=== PATIENT | male | born 1975 | race Caucasian/White ===

== ENCOUNTER 2018-05-23 22:37 | Inpatient (IN) | payer MEDICAID, OTHER ==
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
[2018-05-23] MEDS ORDERED: OLANZapine 5 MG TAB PO ONE (23:01)
[2018-05-23 23:22] LABS: PLATELET COUNT 253 10^3/uL (150-400)
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
--- NOTE | 2018-05-24 11:05 | ASMTTCLDSP ---
TLC Discharge Disposition Disposition: Answers: Admit Disposition Notes: Notes: Admit 3[facility] Discharge Concerns/Recommendations: Notes: In consultation with [facility] ED physician, Chris Worthington MD, and on-call psychiatrist, Ryan Khoury APN, both concurred that pt does appears to meet 27-65 criteria requiring psychiatric hospitalization as pt appears to be gravely disabled due to a mental illness condition. Pt was given the 3N prohibited belongings list while in the ED. Was patient given the Answers: Yes Inpatient Behavioral Health Prohibited Belongings List while in the ED? For inpatient Ryan Khoury APN admission, the following psychiatrist agreed to accept patient for admission to Behavioral Health ([facility]): Type of Hold: Answers: M1/72-hour Hold Hold initiated by: Answers: ED Physician Date Signed: 05/24/2018 11:04 AM Electronically Signed By:Mc Casillas
[2018-05-24] MEDS ORDERED: LORazepam 0.5 MG TAB PO PRN (13:18)
[2018-05-24] MEDS ORDERED: OLANZapine DISINTEGR 10 MG TAB PO PRN (13:18)
[2018-05-24] MEDS ORDERED: MAGNESIUM HYDROXIDE 30 ML UDCUP PO PRN (13:18)
[2018-05-24] MEDS ORDERED: MAG HYDROX/AL HYDROX/SIMETH 30 ML UDCUP PO PRN (13:18)
[2018-05-24] MEDS ORDERED: NICOTINE POLACRILEX 2 MG GUM B PRN (13:18)
[2018-05-24] MEDS ORDERED: ACETAMINOPHEN 325 MG TAB PO PRN (13:18)
[2018-05-24] MEDS ORDERED: DIVALPROEX ER 500 MG TAB PO ONE (14:38)
--- NOTE | 2018-05-24 14:54 | PDMN ---
Medical Necessity Medical necessity: [facility] [id number] Bipolar Disorders, Adult, IP care: 42 y/o w/ Bipolar I d/o w/ psychotic features and cannabis use d/o, severe, M1 hold
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
[2018-05-24] MEDS: OLANZapine DISINTEGR 10 MG TAB PO SCH (20:54)
--- NOTE | 2018-05-25 07:55 | SOAPPROG ---
SOAP Progress Note Assessment/Plan: Assessment: Plan: Subjective: Following up with patient for evaluation of keyona and safety. Patient reports, "Slept well last night, the medications were good. Alexandra eased up on me, felt a little like CBD, but overall was good. Think it is what I need." Patient expresses the following psychiatric symptoms moderate anxiety. Patient reports taking medications as prescribed, and describes response to medications as good. Patient does not report undesirable side effects from the medications, and agrees to continue current medications. Patient reports appetite as good, and reports eating all meals. Patient describes 10 hours of sleep. Objective: Vital Signs Temp Pulse Resp BP Pulse Ox 36.8 C 66 15 120/64 98 05/25/18 06:00 05/25/18 06:00 05/25/18 06:00 05/25/18 06:00 05/25/18 06:00 NURSING REPORT: Consulted with nursing for update on patients progress in treatment. Nurses report patient is engaged in treatment, is attending groups, slept 8 hours, expresses the following psychiatric symptoms: moderate anxiety; exhibits the following psychiatric symptoms: moderate anxiety, disorganized, nonsensical, paranoid; is eating all meals, is attending to ADLs, is taking medications as prescribed with no report of side effects, with no s/s of EPS/ akathisia, and denies SI/HI, denies A/V hallucinations, reports delusions. MSE: The patient presents casually dressed and with good hygiene, and looks stated age. Patient is sitting, posture is upright, and relaxed. Patient appears awake, alert, and responds appropriately and reasonably during interview. Patient is engaged, relates well to interviewer, and emotional facial expression is appropriate to situation and changes appropriately with topic. Patient is cooperative, makes comfortable eye contact, and movements are voluntary, deliberate, with no inappropriate movements. Patient uses walker to ambulate. Patient appears attentive during interview. Patient makes laryngeal sounds effortlessly and shares conversation appropriately; pace of conversation is appropriate, and stream of talking is fluent; articulation is clear and understandable; word choice is effortless and appropriate for education level; completes sentences, rate and volume are normal. Patient reports mood as euthymic. Patients affect is expansive, and incongruent with mood. Patients thought process is non-linear and illogical at times, with loose associations, tangential thought. No other signs of formal thought disorder. Patient denies suicidal and homicidal ideation, and denies hallucinations. Patient reports paranoid delusions. Patient appears to be a poor historian with poor judgement and poor insight into current condition. Patient has no apparent dysfunction in recent or remote memory noted, and no evidence of gross cognitive dysfunction noted at any point during the interview. SUBSTANCE ABUSE BRIEF INTERVENTION: Brief intervention regarding the risks of cannabis abuse is provided to patient with goal to reduce the risk of harm that could result from the continued use of these substances, with the general aim to investigate the problem, raise awareness of problem, develop a solution with the patient, recommend a specific change or activity, and motivate the patient toward change. Assess substance abuse behavior and give supportive advice about harm reduction, recommend a reduction in hazardous/at-risk consumption patterns, and facilitate referrals for additional specialized treatment with managed care specialist. Intermediate goal is for the patient to quit use of cannabis and attend OP substance abuse treatment. Intervention focus on intermediate goals to allow for more immediate success in the treatment process to keep the patient motivated. Review following with patient: Cannabis use risks: Short- term use: impaired short-term memory, impaired motor coordination, altered judgement, in high doses paranoia and psychosis. Long-term use addiction, diminished life satisfaction and achievement, symptoms of chronic bronchitis, and increased risk of chronic psychosis disorders if predisposition to such disorders. In withdrawal anger, aggression irritability, anxiety and nervousness, decreased appetite or weight loss, restlessness, and sleep difficulties with strange dreams. Patient responds well to brief intervention, and states he plans to cut-back on use of THC. He does not appear ready to abstain from THC at this time. - Time Spent With Patient Time Spent With Patient: 15 minutes, met with patient individually. - Pending Discharge Pending Discharge Within 24 Hours: No Pending Discharge Within 48 Hours: No ICD10 Worksheet Patient Problems: Problems Problem Status Onset Acute psychosis Acute Bipolar disorder with severe keyona Acute Severe bipolar disorder with psychotic features, mood-incongruent Acute
--- NOTE | 2018-05-25 09:29 | ASMTBHMTP ---
Master Treatment Plan Master Treatment Plan Answers: Depressed Mood with for: Suicidal Ideation Date: 05/24/2018 Diagnosis on Admission: Bi-Polar Disorder, with Psychotic Features 296.44 (F31.2) Expected length of stay: 3-5 days Reason for admission: Notes: Pt is a 42 yo, , physically disabled, not employed male with no previous report of psychiatric treatment, presented initially to [facility] on a voluntary basis and was transported by his Roberto Carlos [phone], with above concerns. Pt was placed on M1 hold by ED provider which noted: Patient here with paranoia, seeing things, hearing things, people watching him. Pt reported that at one point in the past he was suspected of possibly having bipolar illness, but was never formally diagnosed/treated. Pt denying any past/recent/current suicidal/homicidal ideation. He appears to have some limited insight as to his condition. He appeared very pleasant, cooperative, yet quite tangential and disorganized. Patient's stated presenting problems: Notes: I wanted to get better. Patient's goals for treatment: Notes: I wanted to get better. Patient's strengths: Notes: compassion, support Identify supports outside of hospital: Notes: not really Discharge criteria: Notes: suicidal Ideation will resolve and patient will have a plan to safely manage recurrent suicidal ideation Initial disposition plan/considerations: Notes: return home and start services* Master Treatment Plan Required Signatures Psychiatrist signature: Answers: Psychiatrist: RN on-shift signature: Answers: RN: Patient signature: Answers: Patient: Date Signed: 05/25/2018 09:28 AM Electronically Signed By:Ángel Linares
[2018-05-25] MEDS: OLANZapine DISINTEGR 10 MG TAB PO SCH (20:20)
[2018-05-25] MEDS: DIVALPROEX ER 500 MG TAB PO SCH (20:20)
--- NOTE | 2018-05-26 07:38 | SOAPPROG ---
SOAP Progress Note Assessment/Plan: Assessment: Bipolar I Disorder, severe, most recent keyona, with mood-congruent psychotic features, complicated by substance use. Cannabis use disorder, severe. Improvement noted (see subjective/objective note). Patient is not safe to discharge at this time as patient continues to exhibit signs of keyona and psychosis, and express keyona and psychosis symptoms. Patient requires continued inpatient care because of current keyona and psychosis, and requires inpatient level of care to stabilize in order to no longer be gravely disabled due to mental illness. Patient could benefit from continued inpatient hospitalization for crisis stabilization, safety, and medication evaluation. VPA level tomorrow morning. Based on patient's current presentation, patient will likely discharge tomorrow (Wednesday). Plan: (1) Psychotropic medications: After reviewing options, risks, and benefits patient agrees to continue current medications. No medication changes at this time as more time is needed to determine ongoing tolerability and efficacy. Plan is to continue to observe patient for response and side effects from medications, and ongoing monitoring and evaluation. (2) Review with patient informed consent and recommendations for psychotropic medication treatment listed below (3) Labs: VPA level Wednesday (4) Therapy: continue milieu and group therapy (5) Further investigation including gathering information from patients relatives and review of past case records to inform treatment plan. (6) Safety/Wellness plan and follow-up outpatient appointments to be established prior to discharge. Next steps are for patient to meet with resident caregiver to plan a safe discharge plan and establish outpatient services for ongoing treatment. (7) Confer with inpatient treatment team regarding treatment plan. (8) Legal status: M1; to sign-in voluntary when M1 expires (9) Consider discharge on Wednesday if patient is in stable condition, safe, and has a safe discharge plan. (10) Substance abuse interventions: cannabis abuse PSYCHOTROPIC MEDICATION TREATMENT INFORMED CONSENT and RECOMMENDATIONS: Review nature of condition, diagnosis, and prognosis. Review nature and purpose of psychotropic medication treatment. Review type of psychotropic medications being ordered. Review risk and benefits of psychotropic medication treatment. Review probable length of time patient will need to take medications. Review risk and benefits of not undergoing psychotropic medication treatment. Review alternative treatments to psychotropic medications. Review psychotropic medications contraindications, drug-drug interactions, side effects, and importance of reporting any side effects to a psychiatric provider or nurse during inpatient hospitalization, and upon discharge to patients psychiatric outpatient provider, primary care provider, or other health care nurse rn. Review importance of asking a nurse, psychiatric provider, or primary care provider any questions or problems concerning the psychotropic medications. Verify patient understands the information that has been provided, and understands, accepts, and agrees to psychotropic medications. Review patients safety plan and importance of patient to report to staff while hospitalized if patient is ever a danger to self/others, or unable to care for self, and upon discharge, the importance for patient to contact [facility] or [facility], or go to the nearest emergency room, if patient is ever a danger to self/others, or unable to care for self. Recommend that upon discharge patient establish medication management treatment with a psychiatric provider, establishes routine therapy appointments, and follow-up with primary care provider. Verify patient understands and agrees to these recommendations. 05/26/18 07:37 Subjective: Following up with patient for evaluation of keyona and safety. Patient reports, "Feeling much better, surprised at how well the medications are working. Slept well last night and feel rested." Patient expresses the following psychiatric symptoms moderate anxiety. Patient reports taking medications as prescribed, and describes response to medications as good. Patient does not report undesirable side effects from the medications, and agrees to continue current medications. Patient reports appetite as good, and reports eating all meals. Patient describes 8 hours of sleep. Objective: Vital Signs Temp Pulse Resp BP Pulse Ox 36.4 C 90 16 139/78 H 97 05/26/18 06:00 05/26/18 06:00 05/26/18 06:00 05/26/18 06:00 05/26/18 06:00 Laboratory Results 05/25/18 06:05 NURSING REPORT: Consulted with nursing for update on patients progress in treatment. Nurses report patient is engaged in treatment, is attending groups, slept 8 hours, expresses the following psychiatric symptoms: moderate anxiety; exhibits the following psychiatric symptoms: moderate anxiety, some paranoid thinking; is eating all meals, is attending to ADLs, is taking medications as prescribed with no report of side effects, with no s/s of EPS/akathisia, and denies SI/HI, denies A/V hallucinations, reports paranoid delusions. MSE: The patient presents casually dressed and with good hygiene, and looks stated age. Patient is sitting, posture is upright, and relaxed. Patient appears awake, alert, and responds appropriately and reasonably during interview. Patient is engaged, relates well to interviewer, and emotional facial expression is appropriate to situation and changes appropriately with topic. Patient is cooperative, makes comfortable eye contact, and movements are voluntary, deliberate, with no inappropriate movements. Patient uses walker to ambulate. Patient appears attentive during interview. Patient makes laryngeal sounds effortlessly and shares conversation appropriately; pace of conversation is appropriate, and stream of talking is fluent; articulation is clear and understandable; word choice is effortless and appropriate for education level; completes sentences, rate and volume are normal. Patient reports mood as euthymic. Patients affect is expansive, and incongruent with mood. Patients thought process is linear and illogical at times, with some loose associations, tangential thought. No other signs of formal thought disorder. Patient denies suicidal and homicidal ideation, and denies hallucinations. Patient reports paranoid delusions. Patient appears to be a poor historian with poor judgement and poor insight into current condition. Patient has no apparent dysfunction in recent or remote memory noted, and no evidence of gross cognitive dysfunction noted at any point during the interview. SUBSTANCE ABUSE BRIEF INTERVENTION: Brief intervention regarding the risks of cannabis abuse is provided to patient with goal to reduce the risk of harm that could result from the continued use of these substances, with the general aim to investigate the problem, raise awareness of problem, develop a solution with the patient, recommend a specific change or activity, and motivate the patient toward change. Assess substance abuse behavior and give supportive advice about harm reduction, recommend a reduction in hazardous/at-risk consumption patterns, and facilitate referrals for additional specialized treatment with resident caregiver. Intermediate goal is for the patient to quit use of cannabis and attend OP substance abuse treatment. Intervention focus on intermediate goals to allow for more immediate success in the treatment process to keep the patient motivated. Review following with patient: Cannabis use risks: Short- term use: impaired short-term memory, impaired motor coordination, altered judgement, in high doses paranoia and psychosis. Long-term use addiction, diminished life satisfaction and achievement, symptoms of chronic bronchitis, and increased risk of chronic psychosis disorders if predisposition to such disorders. In withdrawal anger, aggression irritability, anxiety and nervousness, decreased appetite or weight loss, restlessness, and sleep difficulties with strange dreams. - Time Spent With Patient Time Spent With Patient: 15 minutes, met with patient individually. - Pending Discharge Pending Discharge Within 24 Hours: Yes Pending Discharge Within 48 Hours: No Pending Discharge Date: 05/27/18 Pending Discharge Time: 11:00 ICD10 Worksheet Patient Problems: Problems Problem Status Onset Acute psychosis Acute Bipolar disorder with severe keyona Acute Severe bipolar disorder with psychotic features, mood-incongruent Acute
--- NOTE | 2018-05-26 08:18 | ASMTCMCOM ---
CM Note CM Note Notes: Client appears to be doing well on the unit. Still Paranoid, believes "stickers on other peoples car are telling me thinks and others are watching me do everything." Clt notes that "I think the medications are working well and would like to continue on them." Client denies any feelings of AVH, Anxiety, Depression or S/I-H/I. Pt notes receiving 8+ hours of sleep last night. CC sent over referral to P for follow up care, waiting to hear back. Additionally, would like a family meeting on Wednesday around 2:15, or 2:30pm prior to any possible discharge, etc. Medicaid application sent to be screened as secondary coverage to Medicare, etc. Date Signed: 05/26/2018 08:17 AM Electronically Signed By:Ángel Linares
[2018-05-26] MEDS: OLANZapine DISINTEGR 10 MG TAB PO SCH (18:15)
[2018-05-26] MEDS: DIVALPROEX ER 500 MG TAB PO SCH (18:15)
[2018-05-27 06:49] VITALS: BP 125/67
--- NOTE | 2018-05-27 07:11 | BDS ---
REASON FOR ADMISSION: From the ED note dated 05/23/2018, the patient presented to the emergency department with chief complain of "people are watching me and following me." The patient presented to the emergency room by private vehicle with his . The patient states that he is paranoid that people are following him and that people are watching him. The patient denied methamphetamine use. The patient again stated he feels very concerned about people always watching him. The patient was admitted involuntarily on an M1 hold due to being gravely disabled due to a mental illness. The patient was admitted for safety crisis stabilization and medication management. ADMITTING DIAGNOSES: Bipolar I disorder, severe, with mood congruent psychotic features cannabis use disorder, severe, in a controlled environment. ADMISSION PHYSICAL EXAM: The patient was seen on 05/24/2018, by Dr. Turner for an Internal Medicine consultation for medical clearance for inpatient Behavioral Health stay. Dr. Turner reported he saw no medical contraindications to the patient's continued stay on the inpatient behavioral health unit or to any psychiatric medications or procedures. For further details, please refer to Dr. Turner's internal medicine consultation note dated 05/24/2018. ADMISSION LABS: From 05/23/2018, CBC was within normal limits. There was a slight elevation of absolute monocytes of no clinical significance. Serum chemistry revealed hyponatremia with sodium slightly low at 134. Otherwise, renal function and electrolytes were normal. Toxicology screen in the serum was negative for ethyl alcohol and in the urine was non-negative for marijuana, but otherwise negative for substances of abuse. Liver function tests from 05/24, within normal limits. Hemoglobin A1c from 05/24/2018, was 5.6. Fasting lipid panel from 05/25/2018, within normal limits except LDL cholesterol calculated was elevated at 120 and non-HDL cholesterol was elevated at 136. TSH was normal at 1.310. MAJOR PROCEDURES OR TESTS: None. HOSPITAL COURSE: The most prominent symptoms and behaviors while the patient was here were keyona symptoms including tangential thought process, pressured speech, hyper talkative and decreased need for sleep, psychosis symptoms including disorganized thought process and paranoid thought content. Target symptoms during hospitalization included targeting keyona and psychosis. Treatment modalities utilized were milieu and group therapy. Zyprexa 10 mg p.o. at bedtime was started to target mood and psychosis symptoms, was tolerated with no report of side effects and with good response. Depakote ER 1500 mg p.o. at bedtime was started to target mood symptoms, was tolerated with no report of side effects and with good response. The patient has improved considerably with no signs of psychiatric symptoms and no psychiatric symptoms expressed at discharge. The patient reports he has improved since admission. States to be in stable condition. Feels safe to discharge and he contracts for safety. Patient's response to treatment was good. There were no adverse or unexpected results of treatment. The patient was safe throughout his stay, active in treatment, engaged in groups, and was appropriate with staff and other patients. Patient met with this [employer] and treatment team prior to discharge to review discharge plan and to assess safety to discharge. The treatment team consensus is the patient is in stable condition and is safe to discharge today. CONDITION ON DISCHARGE: Patient is in stable condition and is no longer a danger to self or others, and is not gravely disabled due to mental illness. Patient is no longer in need of inpatient level of care, and can be safely and effectively treated within the community. The patients level of risk at time of discharge is low. MSE: The patient is casually dressed and with good hygiene , and looks stated age. Patient is sitting, posture is upright, and position is relaxed. Patient appears awake, alert, and responds appropriately and reasonably during interview. Patient is engaged, relates well to interviewer, and emotional facial expression is appropriate to situation and changes appropriately with topic. Patient is cooperative, makes comfortable eye contact , and movements are voluntary, deliberate, coordinated, and smooth and even with no inappropriate movements. Patient makes laryngeal sounds effortlessly and shares conversation appropriately; pace of conversation is appropriate, and stream of talking is fluent; articulation is clear and understandable; word choice is effortless and appropriate for education level; completes sentences, occasionally pausing to think; rate and volume are appropriate for interview and setting. Patient reports mood as euthymic. Patients affect is stable with full variable range, congruent with mood, and appropriate to speech and circumstances. Patient has linear and logical thinking, with no loose associations, tangential thought, thought blocking, concrete thinking, or any other signs of formal thought disorder. Patient denies suicidal and homicidal ideation, and denies hallucinations and delusions. Patient appears to be a reliable historian with sound judgement and good insight into current condition. Patient has no apparent dysfunction in recent or remote memory noted , and no evidence of gross cognitive dysfunction noted at any point during the interview. DISCHARGE DIAGNOSES: Bipolar I disorder, severe, with mood congruent psychotic features cannabis use disorder, severe CURRENT MEDICATIONS: After reviewing options, risks, and benefits, the patient agrees to Depakote ER 1500 mg p.o. at bedtime, and Zyprexa 10 mg p.o. at bedtime. The patient requests prescriptions at time of discharge and prescriptions for 30 days are written for both of these medications. These prescriptions are reviewed with the patient at time of discharge to ensure patient understanding and accuracy. DISPOSITION: The patient left hospital independently and voluntarily with his and plans to return home with his and to his daughters. FOLLOWUP: community health coordinator reports the appropriate outpatient follow-up services have been established and outpatient appointments have been scheduled. The patient received written instructions with times and dates of outpatient follow-up appointments. The following follow-up recommendations were provided to the patient at discharge: Continue psychotropic medications as prescribed and attend appointments as scheduled. Report any side effects to a psychiatric outpatient provider, a primary care provider, or other health adult day care worker. Address any questions or problems concerning the psychotropic medications with a psychiatric outpatient provider, a primary care provider, or other health adult day care worker. Contact [facility] or [facility], or go to the nearest emergency room, if you are ever a danger to yourself/others, or unable to care for yourself. As soon as possible, establish a routine medication management treatment with a psychiatric provider, establish routine therapy appointments, and follow-up with a primary care provider. SUBSTANCE ABUSE BRIEF INTERVENTION: Brief intervention regarding the risks of cannabis abuse is provided to patient with goal to reduce the risk of harm that could result from the continued use of these substances, with the general aim to investigate the problem, raise awareness of problem, develop a solution with the patient, recommend a specific change or activity, and motivate the patient toward change. Assess substance abuse behavior and give supportive advice about harm reduction, recommend a reduction in hazardous/at-risk consumption patterns, and facilitate referrals for additional specialized treatment with customer care specialist. Intermediate goal is for the patient to quit use of cannabis and attend OP substance abuse treatment. Intervention focus on intermediate goals to allow for more immediate success in the treatment process to keep the patient motivated. Review following with patient: Cannabis use risks: Short- term use: impaired short-term memory, impaired motor coordination, altered judgement, in high doses paranoia and psychosis. Long-term use addiction, diminished life satisfaction and achievement, symptoms of chronic bronchitis, and increased risk of chronic psychosis disorders if predisposition to such disorders. In withdrawal anger, aggression irritability, anxiety and nervousness, decreased appetite or weight loss, restlessness, and sleep difficulties with strange dreams. Patient referred to outpatient substance abuse treatment. LEGAL COURSE: The patient was admitted on an M1 hold for involuntary inpatient psychiatric hospitalization. The patient became voluntary during his stay and patient discharged today independently and voluntarily. ATTITUDE AT TIME OF DISCHARGE: The patients attitude was positive at time of discharge, and patient reports looking forward to discharging today. The patient reports he feels safe to discharge, is no longer a danger to himself or others, is in stable condition, and contracts for safety. Patient states he will continue medications as prescribed, and establish medication management treatment with an outpatient provider after discharge. Patient reports he understands the information that has been provided to him, and he understands, accepts, and agrees to psychotropic medications. Patient describes internal protective factors as the coping skills he has learned while hospitalized here, and he plans to continue to practice these coping skills after discharge. FAMILY MEETING: This [employer] met with patient and patient's at patient's request at time of discharge to assess for safety to discharge and review discharge plan. Patient's reports patient has a safe discharge plan and is safe to discharge today. LABS AND STUDIES: Valproic acid level pending at time of discharge. Will call patient with results when posted. ADVANCED DIRECTIVES: There were no advance directives on file, and the patient was full code during this hospitalization. The following psychotropic medication treatment informed consent and recommendations were provided to the patient at time of discharge. Patient reports he understands, accepts, and agrees to the information that has been provided. PSYCHOTROPIC MEDICATION TREATMENT INFORMED CONSENT and RECOMMENDATIONS: Review nature of condition, diagnosis, and prognosis. Review nature and purpose of psychotropic medication treatment. Review type of psychotropic medications being prescribed. Review risk and benefits of psychotropic medication treatment. Review probable length of time will need to take medications. Review risk and benefits of not undergoing psychotropic medication treatment. Review alternative treatments to psychotropic medications. Review psychotropic medications contraindications, side effects, and importance of reporting any side effects to a psychiatric provider, primary care provider, or other health adult day care worker. Review importance of her asking a psychiatric provider or primary care provider any questions or problems concerning the psychotropic medications. Review safety plan and the importance to contact [facility] or [facility] , or go to the nearest emergency room, if ever a danger to yourself/others, or unable to care for yourself. Recommend upon discharge to establish routine medication management treatment with a psychiatric provider, establish routine therapy appointments, and follow-up with a primary care provider. Verify patient understands, accepts, and agrees to the information that has been provided. /[id number]/MODL MTDD
--- NOTE | 2018-05-27 11:33 | ASMTBHDC ---
Notes Note: Notes: Pt. reports feeling "much better. The medications are helping". Pt. stated he is "pretty happy with my medications". Pt. reports no issues with his current medications. Pt. stated he slept "pretty good". Pt. reports eating well and attending groups. Pt. stated he is discharging today, and that his will pick him up after she gets off work at 2pm. Pt. 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 Pt. stated he will go to the [facility] walk-in clinic on Wednesday to start services. Pt. denied SI, HI, and AVH. Pt. reports "a little bit" of paranoia around "when I feel unsafe, not in control of my own safety". Pt. stated this is a general paranoia he tends to have. Pt. stated upon returning home he "need to figure out what to do during my free time". Pt. stated in the treatment team meeting he "used too much cannibus", "can cut back on {cannibus}, and "the THC was messing with my brain" Pt. presents as alert, calm, good eye contact, and with a mostly pleasant demeanor. Staff report pt. sleeping 9.5 hours last night. Date Signed: 05/27/2018 11:32 AM Electronically Signed By:Brittany Ayala
== END 2018-05-27 15:07 | disposition home or self-care (01) | DRG 885 ==
LOC: BBEH 05-24 12:40
PROVIDERS: ADMIT Registered Nurse; ATTEND Registered Nurse
DX: F31.2 Bipolar disorder, current episode manic severe with psychotic features (principal); F12.959 Cannabis use, unspecified with psychotic disorder, unspecified; R63.4 Abnormal weight loss
CPT/HCPCS: 80305; G0480